=== PATIENT | female | born 1995 | race Caucasian/White ===

== ENCOUNTER 2017-10-21 08:59 | Emergency (ER) | payer OTHER ==
[~2017-10-21] VITALS: Ht 177.8 cm; Wt 88.9 kg
--- NOTE | ~2017-10-21 | EKG ---
[place] [address] [facility] [place] [address] ELECTROCARDIOGRAM REPORT Name: MAGDALENE HERRMANN Room #: DEP Feliz#: [id number] Admission: 10/21/17 Attend Phys: Discharge: 10/21/17 Date of : [birth year] Report #: [id number] THIS REPORT FOR: //name// [facility] ED Test Date: 2017-10-21 Test Time: 09:06:00 Pat Name: MAGDALENE EHRRMANN Department: Room: Gender: F Umbrella Cutter: NEREYDA : 1995 Requested By: Hiral Rosales Order Number: [id number] MD: Justin Guevara Measurements Intervals [employer] Rate: 96 P: 62 RI: 150 QRS: 2 QRSD: 96 T: 3 QT: 347 QTc: 439 Interpretive Statements Sinus rhythm Borderline T wave abnormalities No previous ECG available for comparison Electronically Signed On 10-21-2017 11:41:05 TECHNICAL ACCOUNT EXECUTIVE by Justin Guevara [email or web address] <ELECTRONICALLY SIGNED> By: Justin Guevara MD 10/21/17 [id number] [id number] 5 Justin Guevara MD /YAIMA
[2017-10-21] MEDS ORDERED: TESSALON PERLE100 MG PO (10:08)
[2017-10-21] MEDS ORDERED: IBUPROFEN 600600 M1 PO (10:08)
[2017-10-21] MEDS ORDERED: VENTOLIN HFA 1818 GM INH (10:08)
== END 2017-10-21 10:48 | disposition home or self-care (01) ==
LOC: ER 08:59
DX: R07.89 Other chest pain (principal); R05 Cough; J45.909 Unspecified asthma, uncomplicated